=== PATIENT | male | born 1950 | race Caucasian/White ===

== ENCOUNTER 2016-12-31 12:31 | Emergency (ER) | payer MEDICARE, MEDICAID ==
[2016-12-31] MEDS ORDERED: Sodium Chloride 0.9% 1,000 ML IV ONE (12:53)
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
[2016-12-31 14:11] LABS: CHLORIDE,CL 103 mmol/L (101-111); SODIUM,NA 135 mmol/L (135-145)
[2016-12-31] MEDS ORDERED: cefTRIAXone 1 GM in Sodium Chloride 0.9% 50 ML IV ONE (15:06)
[2016-12-31] MEDS ORDERED: Azithromycin 500 MG in Sodium Chloride 0.9% 250 ML IV ONE (15:06)
[2016-12-31 16:34] VITALS: BP 84/58
--- NOTE | 2016-12-31 17:10 | CT ---
Clinical history: 66-year-old quadriplegic longterm patient with pronounced abdominal distention . (" Bloating") Perforation? Scan technique: Volume acquisition of data emergency unenhanced CT scan of the abdomen and pelvis ob tained with patient lying supine on the Siemens multi slice CT scanner [place], [place]. All data archived in the PACS system for storage, reformatting and study. Interpretation: 1. Asymmetric dense consolidation (infiltrate/atelectasis or collapse) left lung base posteriorly, w ith small bibasilar dependent pleural effusions. Borderline cardiomegaly. 2. Multilevel disc disease and chronic hypertrophic arthritic changes T8-S1. No fracture or spondylo listhesis. 3. Large volume peritoneal fat and scattered sigmoid diverticula. No signs of acute diverticulitis, mechanical large/small bowel obstruction, inflammatory "dirty" peritoneal fat, ascites or free air. 4. Gallbladder, unenhanced liver, stomach, spleen, pancreas and adrenal glands unremarkable. 5. Bilateral renal cortical scarring. No sign of nephrolithiasis or obstructive uropathy (indwelling catheter urinary bladder which appears to have uniformly thick wall). Normal appendix RLQ. 6. No pelvic or abdominal mass lesion and no retroperitoneal lymphadenopathy. 7. Calcification scattered course of normal caliber aortoiliac vessels. CONCLUSION: Abnormal process left lung base posteriorly (see above). Sigmoid diverticulosis. No curr ent signs of acute peritonitis or other intraperitoneal abnormality. Abnormal L-spine
== END 2016-12-31 16:58 | disposition home or self-care (01) ==
LOC: DL.ED 12:31
DX: J18.9 Pneumonia, unspecified organism (principal); F17.210 Nicotine dependence, cigarettes, uncomplicated; Z79.899 Other long term (current) drug therapy
CPT/HCPCS: 36415; 71010; 74176; 80053; 81001; 83605; 85025; 87040; 96361; 96365; 96367; 99285; J0456; J0696; J7030; J7050; 99284

== ENCOUNTER 2017-02-01 09:55 | Emergency (ER) | payer MEDICARE, MEDICAID ==
[2017-02-01] MEDS ORDERED: Sodium Chloride 0.9% 10 ML Syringe FLUSH PRN (10:30)
[2017-02-01 10:36] LABS: O2 DELIVERY DEVICE CPAP
--- NOTE | 2017-02-01 10:37 | EDM.PDOC ---
ED HPI GENERAL MEDICAL PROBLEM - General Chief Complaint: Respiratory Problem Stated Complaint: BY AMBULANCE Time Seen by Provider: 02/01/17 10:34 Source of Information: Reports: EMS, Care Home Records History Limitations: Reports: Altered Mental Status - History of Present Illness INITIAL COMMENTS - FREE TEXT/NARRATIVE: Pt brought in by EMS unresponsive on BiPap for low O2 saturation. Per brother, pt has been treated for Pneumonia the last week. Has a hx of urosepsis. Was found by staff this morning unresponsive. Onset: Today, Sudden Treatments INSURANCE ACCOUNT SPECIALIST: Reports: Breathing Treatments, IV/IO, Urinary Catheter in Place , Other (see below) Other Treatments INSURANCE ACCOUNT SPECIALIST: CPAP - Related Data Allergies Allergy/AdvReac Type Severity Reaction Status Date / Time No Known Allergies Allergy Verified 02/01/17 10:31 Home Meds: Home Meds Baclofen 20 mg PO QID 08/31/14 [History] Dantrolene [Dantrium] 50 tab PO BID 08/31/14 [History] Acetaminophen [Tylenol] 650 mg PO DAILY 04/12/16 [History] Bisacodyl 10 mg RECTAL ASDIRECTED PRN 04/12/16 [History] Clopidogrel [Plavix] 75 mg PO DAILY 04/12/16 [History] Polyethylene Glycol 3350 [MiraLAX] 17 gm PO DAILY PRN 04/12/16 [History] Simvastatin [Zocor] 40 mg PO DAILY 04/12/16 [History] Cyanocobalamin (Vitamin B12) [Vitamin B12] 1,000 mcg IM WEEKLY 05/20/16 [History ] Hydrocortisone [Hydrocortisone 2.5% Crm] 1 applic TOP DAILY 05/20/16 [History] Lisinopril 1 tab PO DAILY 05/20/16 [History] Magnesium Hydroxide [Milk of Magnesia] 10 ml PO ASDIRECTED PRN 05/20/16 [History ] Multivitamin [Multivitamins] 1 tab PO DAILY 05/20/16 [History] Zolpidem Tartrate [Ambien] 1 tab PO BEDTIME PRN 05/20/16 [History] OLANZapine [Zyprexa] 10 mg PO DAILY 12/31/16 [History] Acetaminophen [Tylenol] 650 mg PO Q4HR PRN 02/01/17 [History] Past Medical History HEENT History: Reports: None Cardiovascular History: Reports: Blood Clots/VTE/DVT, [place], Stents Respiratory History: Reports: PE Gastrointestinal History: Reports: None Genitourinary History: Reports: Neurogenic Bladder, Retention, Urinary, UTI, Recurrent Musculoskeletal History: Reports: Other (See Below) Other Musculoskeletal History: quadrapilegic Neurological History: Reports: Concussion, Other (See Below) Other Neuro History: quadriplegic Psychiatric History: Reports: None Endocrine/Metabolic History: Reports: None Hematologic History: Reports: None Immunologic History: Reports: None Oncologic (Cancer) History: Reports: None Dermatologic History: Reports: None - Past Surgical History Cardiovascular Surgical History: Reports: Coronary Artery Stent Social & Family History - Family History Family Medical History: Noncontributory - Tobacco Use Smoking Status *Q: Current Every Day Smoker Years of Tobacco use: 35 Packs/Tins Daily: 0.2 - Alcohol Use Days Per Week of Alcohol Use: 1 Number of Drinks Per Day: 1 Total Drinks Per Week: 1 - Recreational Drug Use Recreational Drug Use: No ED ROS GENERAL - Review of Systems Review Of Systems: Unable To Obtain ED EXAM, GENERAL - Physical Exam Exam: See Below Exam Limited By: Altered Mental Status General Appearance: Obtunded, Moderate Distress Eye Exam: Bilateral Eye: Other Respiratory/Chest: Respiratory Distress, Decreased Breath Sounds, Rhonchi Cardiovascular: Normal Peripheral Pulses, Tachycardia Neurological: Unresponsive Skin Exam: Warm, Dry, Intact Course - Vital Signs Last Recorded V/S: Last Vital Signs Temp 97.8 F 02/01/17 11:56 Pulse 112 H 02/01/17 11:56 Resp 17 02/01/17 11:56 BP 59/43 L 02/01/17 11:56 Pulse Ox 89 L 02/01/17 11:56 - Orders/Labs/Meds Orders: Active Orders 24 hr Category Date Time Status EKG Documentation Completion [RC] STAT Care 02/01/17 10:30 Active Peripheral IV Care [RC] . DIRECTED Care 02/01/17 10:33 Active RT BiPAP/CPAP [RC] ASDIRECTED Care 02/01/17 10:30 Active CULTURE BLOOD [BC] Stat Lab 02/01/17 10:30 Results CULTURE BLOOD [BC] Stat Lab 02/01/17 11:00 Results CULTURE URINE [RM] Stat Lab 02/01/17 11:28 Received Norepinephrine [Levophed] 4 mg Med 02/01/17 11:00 Active Dextrose 5% in Water 246 ml IV TITRATE Sodium Chloride 0.9% [Saline Flush] Med 02/01/17 10:30 Active 10 ml FLUSH ASDIRECTED PRN Blood Culture x2 Reflex Set [OM.PC] Stat Oth 02/01/17 10:32 Ordered Peripheral IV Insertion Adult [OM.PC] Urgent Oth 02/01/17 10:30 Ordered Medication Orders Norepinephrine Bitartrate 4 mg (/ Dextrose/Water) 250 mls @ 7.5 mls/hr IV TITRATE VIJAY; 2 MCG/MIN PRN Reason: Protocol Last Titration: 02/01/17 12:10 Dose: 4 mcg/min, 15 mls/hr Titration: 02/01/17 12:03 Dose: 3 mcg/min, 11.25 mls/hr Admin: 02/01/17 11:05 Dose: 2 mcg/min, 7.5 mls/hr Sodium Chloride (Saline Flush) 10 ml FLUSH ASDIRECTED PRN PRN Reason: Keep Vein Open Last Admin: 02/01/17 10:20 Dose: 10 ml Labs: Laboratory Tests 02/01/17 02/01/17 02/01/17 Range/Units 10:25 10:30 10:30 WBC 25.0 H (5.0-10.0) 10^3/uL RBC 3.74 L (4.6-6.2) 10^6/uL Hgb 12.2 L (14.0-18.0) g/dL Hct 39.0 L (40.0-54.0) % MCV 104.3 H (80-100) fL MCH 32.6 (27.0-34.0) pg MCHC 31.3 L (33.0-35.0) g/dL Plt Count 153 (150-450) 10^3/uL Neut % (Auto) 72.0 (42.2-75.2) % Lymph % (Auto) 14.4 L (20.5-50.1) % [place] % (Auto) 13.0 H (2-8) % Eos % (Auto) 0.4 L (1.0-3.0) % Baso % (Auto) 0.2 (0.0-1.0) % Add Manual Diff Yes Neutrophils % (Manual) 71 % Band Neutrophils % 5 % Lymphocytes % (Manual) 14 % Monocytes % (Manual) 9 % Eosinophils % (Manual) 1 % ABG pH 7.17 L* (7.35-7.45) ABG pCO2 71 H* (35-45) mmHg ABG pO2 68 L (70-100) mmHg ABG HCO3 24.5 (22-26) mmol/L ABG O2 Saturation 88 L (95-100) % ABG Base Excess -6 L ((-2)-(+3)) mmol/L Adryan Test p O2 Delivery Device Cpap Oxygen Flow Rate 7 Sodium 134 L (135-145) mmol/L Potassium 5.3 H (3.6-5.0) mmol/L Chloride 98 L (101-111) mmol/L Carbon Dioxide 24.0 (21.0-31.0) mmol/L Anion Gap 17.3 BUN 44 H (7-18) mg/dL Creatinine 1.7 H (0.6-1.3) mg/dL Est Cr Clr Drug Dosing TNP Estimated GFR (MDRD) 41 BUN/Creatinine Ratio 25.88 Glucose 161 H (74-105) mg/dL Lactic Acid (0.5-2.2) mmol/L Calcium 8.5 (8.4-10.2) mg/dl Total Bilirubin 0.8 (0.2-1.0) mg/dL AST 20 (10-42) IU/L ALT 16 (10-60) IU/L Alkaline Phosphatase 68 (42-121) IU/L Creatine Kinase (26-174) IU/L Creatine Kinase Index (0-2.4) % CK-MB (CK-2) (0.4-4.7) ng/mL Troponin I 0.04 H* (0.00-0.02) ng/ml B-Natriuretic Peptide 78 (0-100) pg/ml Total Protein 6.6 L (6.7-8.2) g/dl Albumin 3.1 L (3.2-5.5) g/dl Globulin 3.5 Albumin/Globulin Ratio 0.89 Urine Color (YELLOW) Urine Appearance (CLEAR) Urine pH (5.0-9.0) Ur Specific [place] (1.005-1.030) Urine Protein (NEGATIVE) Urine Glucose (UA) (NEGATIVE) Urine Ketones (NEGATIVE) Urine Occult Blood (NEGATIVE) Urine Nitrite (NEGATIVE) Urine Bilirubin (NEGATIVE) Urine Urobilinogen (0.2-1.0) mg/dL Ur Leukocyte Esterase (NEGATIVE) Urine RBC /HPF Urine WBC (0-5/HPF) /HPF Calcium Oxalate Crystal /HPF Amorphous Sediment (0/HPF) /HPF Urine Bacteria (0-FEW/HPF) /HPF 02/01/17 02/01/17 02/01/17 Range/Units 10:30 11:00 11:28 WBC (5.0-10.0) 10^3/uL RBC (4.6-6.2) 10^6/uL Hgb (14.0-18.0) g/dL Hct (40.0-54.0) % MCV (80-100) fL MCH (27.0-34.0) pg MCHC (33.0-35.0) g/dL Plt Count (150-450) 10^3/uL Neut % (Auto) (42.2-75.2) % Lymph % (Auto) (20.5-50.1) % [place] % (Auto) (2-8) % Eos % (Auto) (1.0-3.0) % Baso % (Auto) (0.0-1.0) % Add Manual Diff Neutrophils % (Manual) % Band Neutrophils % % Lymphocytes % (Manual) % Monocytes % (Manual) % Eosinophils % (Manual) % ABG pH (7.35-7.45) ABG pCO2 (35-45) mmHg ABG pO2 (70-100) mmHg ABG HCO3 (22-26) mmol/L ABG O2 Saturation (95-100) % ABG Base Excess ((-2)-(+3)) mmol/L Adryan Test O2 Delivery Device Oxygen Flow Rate Sodium (135-145) mmol/L Potassium (3.6-5.0) mmol/L Chloride (101-111) mmol/L Carbon Dioxide (21.0-31.0) mmol/L Anion Gap BUN (7-18) mg/dL Creatinine (0.6-1.3) mg/dL Est Cr Clr Drug Dosing Estimated GFR (MDRD) BUN/Creatinine Ratio Glucose (74-105) mg/dL Lactic Acid 1.5 (0.5-2.2) mmol/L Calcium (8.4-10.2) mg/dl Total Bilirubin (0.2-1.0) mg/dL AST (10-42) IU/L ALT (10-60) IU/L Alkaline Phosphatase (42-121) IU/L Creatine Kinase 364 H (26-174) IU/L Creatine Kinase Index 0.7 (0-2.4) % CK-MB (CK-2) 2.60 (0.4-4.7) ng/mL Troponin I (0.00-0.02) ng/ml B-Natriuretic Peptide (0-100) pg/ml Total Protein (6.7-8.2) g/dl Albumin (3.2-5.5) g/dl Globulin Albumin/Globulin Ratio Urine Color Yellow (YELLOW) Urine Appearance Cloudy (CLEAR) Urine pH 5.5 (5.0-9.0) Ur Specific [place] 1.015 (1.005-1.030) Urine Protein 30 H (NEGATIVE) Urine Glucose (UA) Negative (NEGATIVE) Urine Ketones Trace H (NEGATIVE) Urine Occult Blood Moderate H (NEGATIVE) Urine Nitrite Negative (NEGATIVE) Urine Bilirubin Negative (NEGATIVE) Urine Urobilinogen 0.2 (0.2-1.0) mg/dL Ur Leukocyte Esterase Moderate H (NEGATIVE) Urine RBC 10-20 H /HPF Urine WBC >100 H (0-5/HPF) /HPF Calcium Oxalate Crystal Few H /HPF Amorphous Sediment Rare (0/HPF) /HPF Urine Bacteria Few (0-FEW/HPF) /HPF Meds: Medications Generic Name Dose Route Start Last Admin Trade Name Freq PRN Reason Stop Dose Admin Norepinephrine Bitartrate 4 mg 250 mls @ 7.5 mls/hr 02/01/17 11:00 02/01/17 12:10 / Dextrose/Water IV 4 mcg/min TITRATE VIJAY 15 mls/hr Protocol Titration 2 MCG/MIN Sodium Chloride 10 ml 02/01/17 10:30 02/01/17 10:20 Saline Flush FLUSH 10 ml ASDIRECTED PRN Administration Keep Vein Open Discontinued Medications Generic Name Dose Route Start Last Admin Trade Name Freq PRN Reason Stop Dose Admin Levofloxacin/Dextrose 500 mg/ 100 mls @ 100 mls/hr 02/01/17 10:51 02/01/17 11 :35 Premix IV 02/01/17 11:50 100 mls/hr ONETIME ONE Administration Meropenem 1 gm/ Sodium 100 mls @ 200 mls/hr 02/01/17 12:30 02/01/17 12:43 Chloride IV 02/01/17 12:59 200 mls/hr ONETIME ONE Administration - Re-Assessments/Exams Free Text/Narrative Re-Assessment/Exam: 02/01/17 12:31 Spoke with [facility] about transfer due to sepsis with Dr. Aguilera acccepting pt. Was then called to state that after speaking with the education administrator, [facility] will only accept if code status is changed from DNR/DNI to a full code. Spoke with Pt 's Meet Gilliland (brother) who states that pt is to remain a DNR/DNI. Spoke with hospitalist donor center technician for this facility who will come to see patient to evaluate for admission. 02/01/17 13:04 [facility] called and accepted patient. Will transfer Departure - Departure Time of Disposition: 13:04 Disposition: DC/Tfer to [facility] 02 Condition: Fair, Critical Clinical Impression: UTI, Urinary tract infectious disease Pneumonia Qualifiers: Pneumonia type: due to unspecified organism Laterality: bilateral Lung location : lower lobe of lung Qualified Code(s): J18.9 - Pneumonia, unspecified organism - Discharge Information Forms: ED Department Discharge, Interfacility Transfer EMTALA - My Orders Last 24 Hours: My Active Orders 02/01/17 10:30 EKG Documentation Completion [RC] STAT RT BiPAP/CPAP [RC] ASDIRECTED CULTURE BLOOD [BC] Stat Sodium Chloride 0.9% [Saline Flush] 10 ml FLUSH ASDIRECTED PRN Peripheral IV Insertion Adult [OM.PC] Urgent 02/01/17 10:32 Blood Culture x2 Reflex Set [OM.PC] Stat 02/01/17 10:33 Peripheral IV Care [RC] . DIRECTED 02/01/17 11:00 CULTURE BLOOD [BC] Stat Norepinephrine [Levophed] 4 mg Dextrose 5% in Water 246 ml IV TITRATE 02/01/17 11:28 CULTURE URINE [RM] Stat - Assessment/Plan Last 24 Hours: My Active Orders 02/01/17 10:30 EKG Documentation Completion [RC] STAT RT BiPAP/CPAP [RC] ASDIRECTED CULTURE BLOOD [BC] Stat Sodium Chloride 0.9% [Saline Flush] 10 ml FLUSH ASDIRECTED PRN Peripheral IV Insertion Adult [OM.PC] Urgent 02/01/17 10:32 Blood Culture x2 Reflex Set [OM.PC] Stat 02/01/17 10:33 Peripheral IV Care [RC] . DIRECTED 02/01/17 11:00 CULTURE BLOOD [BC] Stat Norepinephrine [Levophed] 4 mg Dextrose 5% in Water 246 ml IV TITRATE 02/01/17 11:28 CULTURE URINE [RM] Stat
[2017-02-01 10:38] LABS: BASE EXCESS ARTERIAL -6 mmol/L ((-2)-(+3)); BICARBONATE,ARTERIAL 24.5 mmol/L (22-26); O2 SATURATION ARTERIAL 88 % (95-100); PO2 ARTERIAL 68 mmHg (70-100)
[2017-02-01 10:39] LABS: PCO2 ARTERIAL 71 mmHg (35-45)
[2017-02-01 10:40] LABS: O2 FLOW RATE 7
--- NOTE | 2017-02-01 10:49 | CR ---
Clinical history: 66-year-old male emergency department with "altered mental status". Interpretation: Poor inspiratory effort Upright AP portable chest film....abnormal, with patchy new atelectasis or infiltrate in the right base when compared to 31 Dec 2016 and 20 May 2016 exam. Chronic left lower lobe consolidation with underlying atelectasis/collapse, unchanged. Evidence lower cervical spinal fusion. Normal cardiac silhouette without cephalization of vascular flow or new signs of alveolar edema or d ependent pleural effusion. No lung mass or hilar lymphadenopathy. CONCLUSION: Patchy new right lower lobe pneumonic like consolidation. Clinical?
[2017-02-01] MEDS ORDERED: Levofloxacin/Dextrose 5%-Water 500 MG in Premix Bag 1 BAG IV ONE (10:51)
[2017-02-01 11:00] LABS: CHLORIDE,CL 98 mmol/L (101-111); SODIUM,NA 134 mmol/L (135-145)
[2017-02-01] MEDS ORDERED: Norepinephrine 4 MG in Dextrose 5% in Water 246 ML IV SCH ×2 (11:00)
[2017-02-01 11:58] VITALS: BP 59/43
[2017-02-01] MEDS ORDERED: Meropenem 1 GM in Sodium Chloride 0.9% 100 ML IV ONE (12:30)
--- NOTE | 2017-02-20 12:36 | EKG ---
02/01/2017 - PHILIP SANTAMARIA - Jon 12-lead EKG shows normal sinus rhythm with sinus tachycardia with heart rate of 121. No significant ST elevation or ST depression noted on this 12-lead EKG. Nonspecific ST-T wave changes noted on lead 3 and also on V2 and V3. [facility] /[id number]
== END 2017-02-01 13:15 ==
LOC: DL.ED 09:55
DX: J18.9 Pneumonia, unspecified organism (principal); N39.0 Urinary tract infection, site not specified; F17.210 Nicotine dependence, cigarettes, uncomplicated; Z79.899 Other long term (current) drug therapy; Z86.711 Personal history of pulmonary embolism; Z95.5 Presence of coronary angioplasty implant and graft
CPT/HCPCS: 36415; 36600; 71010; 80053; 81001; 82550; 82553; 82803; 83605; 83880; 84484; 85025; 87040; 87086; 93005; 93010; 94660; 96365; 96367; 96368; 99285; J1956; J2185; J7050; J7060; 87088; 87186

== ENCOUNTER 2017-03-04 11:13 | Emergency (ER) | payer MEDICARE, MEDICAID ==
--- NOTE | 2017-03-04 11:23 | EDM.PDOC ---
ED HPI GENERAL MEDICAL PROBLEM - General Stated Complaint: [id number] LOW BP SEIZURE SENT FROM DR MONDRAGON Time Seen by Provider: 03/04/17 11:20 Source of Information: Reports: Family, Provider History Limitations: Reports: Altered Mental Status - History of Present Illness INITIAL COMMENTS - FREE TEXT/NARRATIVE: This 66 yo male patient was sent to the ED from the [facility] (Dr. Mina) due to hypotension. According to the [facility] staff, the patient started having problems this morning at about 0900. The [facility] staff reports the patient has had 3-4 episodes of shaking (head only) and his "eyes rolling back" . The patient is paralyzed below the neck. The patient has been seen in the past for pneumonia and uro sepsis with his last hospitalization being 1 month ago. senior living notes report that the patient has puss in his urine and it is cloudy. Onset: Today Onset Date: 03/04/17 Onset Time: 09:00 Duration: Hour(s): Location: Reports: Generalized Quality: Reports: Dull Severity: Moderate Improves with: Reports: None Worsens with: Reports: None Associated Symptoms: Reports: No Other Symptoms - Related Data Allergies Allergy/AdvReac Type Severity Reaction Status Date / Time No Known Allergies Allergy Verified 03/04/17 11:29 Home Meds: Home Meds Baclofen 5 mg PO TID 08/31/14 [History] Dantrolene [Dantrium] 25 tab PO BID 08/31/14 [History] Acetaminophen [Tylenol] 650 mg PO DAILY 04/12/16 [History] Bisacodyl 10 mg RECTAL ASDIRECTED PRN 04/12/16 [History] Clopidogrel [Plavix] 75 mg PO DAILY 04/12/16 [History] Polyethylene Glycol 3350 [MiraLAX] 17 gm PO DAILY PRN 04/12/16 [History] Simvastatin [Zocor] 40 mg PO DAILY 04/12/16 [History] Cyanocobalamin (Vitamin B12) [Vitamin B12] 1,000 mcg IM ASDIRECTED 05/20/16 [ History] Hydrocortisone [Hydrocortisone 2.5% Crm] 1 applic TOP DAILY 05/20/16 [History] Lisinopril 1 tab PO DAILY 05/20/16 [History] Magnesium Hydroxide [Milk of Magnesia] 10 ml PO ASDIRECTED PRN 05/20/16 [History ] Multivitamin [Multivitamins] 1 tab PO DAILY 05/20/16 [History] Zolpidem Tartrate [Ambien] 1 tab PO BEDTIME PRN 05/20/16 [History] OLANZapine [Zyprexa] 5 mg PO DAILY 12/31/16 [History] Acetaminophen [Tylenol] 650 mg PO Q4HR PRN 02/01/17 [History] Ascorbic Acid [Vitamin C] 500 mg PO BID 03/04/17 [History] Sennosides/Docusate Sodium [Sennosides-Docusate Sodium] 2 tab PO BID 03/04/17 [ History] Past Medical History HEENT History: Reports: None Cardiovascular History: Reports: Blood Clots/VTE/DVT, [place], Stents Respiratory History: Reports: PE Gastrointestinal History: Reports: None Genitourinary History: Reports: Neurogenic Bladder, Retention, Urinary, UTI, Recurrent Musculoskeletal History: Reports: Other (See Below) Other Musculoskeletal History: quadrapilegic Neurological History: Reports: Concussion, Other (See Below) Other Neuro History: quadriplegic Psychiatric History: Reports: None Endocrine/Metabolic History: Reports: None Hematologic History: Reports: None Immunologic History: Reports: None Oncologic (Cancer) History: Reports: None Dermatologic History: Reports: None - Past Surgical History Cardiovascular Surgical History: Reports: Coronary Artery Stent Social & Family History - Family History Family Medical History: Noncontributory - Tobacco Use Smoking Status *Q: Current Every Day Smoker Years of Tobacco use: 35 Packs/Tins Daily: 0.2 - Alcohol Use Days Per Week of Alcohol Use: 1 Number of Drinks Per Day: 1 Total Drinks Per Week: 1 - Recreational Drug Use Recreational Drug Use: No ED ROS GENERAL - Review of Systems Review Of Systems: ROS reveals no pertinent complaints other than HPI. ED EXAM, GENERAL - Physical Exam Exam: See Below Exam Limited By: No Limitations General Appearance: Alert, WD/WN, No Apparent Distress Eye Exam: Bilateral Eye: EOMI, Normal Inspection, PERRL Ears: Normal External Exam, Normal Canal, Hearing Grossly Normal, Normal TMs Nose: Normal Inspection, Normal Mucosa, No Blood Throat/Mouth: Normal Inspection, Normal Lips, Normal Teeth, Normal Gums, Normal Oropharynx, Normal Voice, No Airway Compromise Head: Atraumatic, Normocephalic Neck: Normal Inspection, Supple, Non-Tender, Full Range of Motion Respiratory/Chest: No Respiratory Distress, Decreased Breath Sounds Cardiovascular: Normal Peripheral Pulses, Regular Rate, Rhythm, No Edema, No Gallop, No JVD, No Murmur, No Rub GI/Abdominal: Normal Bowel Sounds, Soft, Non-Tender, No Organomegaly, No Distention, No Abnormal Bruit, No Mass (Male) Exam: Deferred Rectal (Males) Exam: Deferred Extremities: Normal Inspection Neurological: Alert, Oriented Psychiatric: Normal Affect, Normal Mood Skin Exam: Warm, Dry, Intact, Normal Color, No Rash Lymphatic: No Adenopathy Course - Vital Signs Last Recorded V/S: Last Vital Signs Temp 35.9 C 03/04/17 11:20 Pulse 66 03/04/17 13:35 Resp 16 03/04/17 11:20 BP 67/45 L 03/04/17 13:35 Pulse Ox 100 03/04/17 13:35 - Orders/Labs/Meds Orders: Active Orders 24 hr Category Date Time Status EKG Documentation Completion [RC] URGENT Care 03/04/17 11:16 Active CULTURE BLOOD [BC] Stat Lab 03/04/17 11:30 Received CULTURE BLOOD [BC] Stat Lab 03/04/17 11:37 Results Piperacillin/Tazobactam [Zosyn] 3.375 gm Med 03/04/17 15:15 Ordered Sodium Chloride 0.9% [Normal Saline] 100 ml IV ONETIME Sodium Chloride 0.9% [Normal Saline] 1,000 ml Med 03/04/17 12:48 Active IV .BOLUS Blood Culture x2 Reflex Set [OM.PC] Stat Oth 03/04/17 11:16 Ordered Medication Orders Sodium Chloride (Normal Saline) 1,000 mls @ 125 mls/hr IV .BOLUS ONE Stop: 03/04/17 20:47 Last Admin: 03/04/17 12:54 Dose: 125 mls/hr Piperacillin Sod/Tazobactam (Sod 3.375 gm/ Sodium Chloride) 100 mls @ 200 mls/ hr IV ONETIME ONE Stop: 03/04/17 15:44 Labs: Laboratory Tests 03/04/17 03/04/17 03/04/17 Range/Units 11:30 11:30 11:30 WBC 12.8 H (5.0-10.0) 10^3/uL RBC 3.88 L (4.6-6.2) 10^6/uL Hgb 12.8 L (14.0-18.0) g/dL Hct 38.1 L (40.0-54.0) % MCV 98.2 (80-100) fL MCH 33.0 (27.0-34.0) pg MCHC 33.6 (33.0-35.0) g/dL Plt Count 211 (150-450) 10^3/uL Neut % (Auto) 72.0 (42.2-75.2) % Lymph % (Auto) 16.7 L (20.5-50.1) % [place] % (Auto) 8.8 H (2-8) % Eos % (Auto) 2.3 (1.0-3.0) % Baso % (Auto) 0.2 (0.0-1.0) % Add Manual Diff Yes Neutrophils % (Manual) 70 % Band Neutrophils % 2 % Lymphocytes % (Manual) 15 % Monocytes % (Manual) 10 % Eosinophils % (Manual) 2 % Myelocytes % 1 Sodium (135-145) mmol/L Potassium (3.6-5.0) mmol/L Chloride (101-111) mmol/L Carbon Dioxide (21.0-31.0) mmol/L Anion Gap BUN (7-18) mg/dL Creatinine (0.6-1.3) mg/dL Est Cr Clr Drug Dosing Estimated GFR (MDRD) BUN/Creatinine Ratio Glucose (74-105) mg/dL Lactic Acid 1.8 (0.5-2.2) mmol/L Calcium (8.4-10.2) mg/dl Magnesium 2.0 (1.8-2.5) mg/dL Total Bilirubin (0.2-1.0) mg/dL AST (10-42) IU/L ALT (10-60) IU/L Alkaline Phosphatase (42-121) IU/L Troponin I (0.00-0.02) ng/ml Total Protein (6.7-8.2) g/dl Albumin (3.2-5.5) g/dl Globulin Albumin/Globulin Ratio Urine Color (YELLOW) Urine Appearance (CLEAR) Urine pH (5.0-9.0) Ur Specific [place] (1.005-1.030) Urine Protein (NEGATIVE) Urine Glucose (UA) (NEGATIVE) Urine Ketones (NEGATIVE) Urine Occult Blood (NEGATIVE) Urine Nitrite (NEGATIVE) Urine Bilirubin (NEGATIVE) Urine Urobilinogen (0.2-1.0) mg/dL Ur Leukocyte Esterase (NEGATIVE) Urine RBC /HPF Urine WBC (0-5/HPF) /HPF Ur Epithelial Cells /HPF Amorphous Sediment (0/HPF) /HPF Urine Bacteria (0-FEW/HPF) /HPF Hyaline Casts /LPF Urine Mucus /LPF 03/04/17 03/04/17 Range/Units 11:30 14:13 WBC (5.0-10.0) 10^3/uL RBC (4.6-6.2) 10^6/uL Hgb (14.0-18.0) g/dL Hct (40.0-54.0) % MCV (80-100) fL MCH (27.0-34.0) pg MCHC (33.0-35.0) g/dL Plt Count (150-450) 10^3/uL Neut % (Auto) (42.2-75.2) % Lymph % (Auto) (20.5-50.1) % [place] % (Auto) (2-8) % Eos % (Auto) (1.0-3.0) % Baso % (Auto) (0.0-1.0) % Add Manual Diff Neutrophils % (Manual) % Band Neutrophils % % Lymphocytes % (Manual) % Monocytes % (Manual) % Eosinophils % (Manual) % Myelocytes % Sodium 133 L (135-145) mmol/L Potassium 4.8 (3.6-5.0) mmol/L Chloride 103 (101-111) mmol/L Carbon Dioxide 17.0 L (21.0-31.0) mmol/L Anion Gap 17.8 BUN 37 H (7-18) mg/dL Creatinine 1.3 (0.6-1.3) mg/dL Est Cr Clr Drug Dosing TNP Estimated GFR (MDRD) 56 BUN/Creatinine Ratio 28.46 Glucose 116 H (74-105) mg/dL Lactic Acid (0.5-2.2) mmol/L Calcium 9.0 (8.4-10.2) mg/dl Magnesium (1.8-2.5) mg/dL Total Bilirubin 0.5 (0.2-1.0) mg/dL AST 18 (10-42) IU/L ALT 16 (10-60) IU/L Alkaline Phosphatase 62 (42-121) IU/L Troponin I 0.10 H* (0.00-0.02) ng/ml Total Protein 6.6 L (6.7-8.2) g/dl Albumin 3.7 (3.2-5.5) g/dl Globulin 2.9 Albumin/Globulin Ratio 1.28 Urine Color Yellow (YELLOW) Urine Appearance Turbid (CLEAR) Urine pH 5.0 (5.0-9.0) Ur Specific [place] >= 1.030 (1.005-1.030) Urine Protein 100 H (NEGATIVE) Urine Glucose (UA) Negative (NEGATIVE) Urine Ketones Negative (NEGATIVE) Urine Occult Blood Moderate H (NEGATIVE) Urine Nitrite Negative (NEGATIVE) Urine Bilirubin Negative (NEGATIVE) Urine Urobilinogen 0.2 (0.2-1.0) mg/dL Ur Leukocyte Esterase Large H (NEGATIVE) Urine RBC 50-75 H /HPF Urine WBC >100 H (0-5/HPF) /HPF Ur Epithelial Cells Moderate H /HPF Amorphous Sediment Few (0/HPF) /HPF Urine Bacteria Few (0-FEW/HPF) /HPF Hyaline Casts Few H /LPF Urine Mucus Few H /LPF Meds: Medications Generic Name Dose Route Start Last Admin Trade Name Freq PRN Reason Stop Dose Admin Sodium Chloride 1,000 mls @ 125 mls/hr 03/04/17 12:48 03/04/17 12:54 Normal Saline IV 03/04/17 20:47 125 mls/hr .BOLUS ONE Administration Piperacillin Sod/Tazobactam 100 mls @ 200 mls/hr 03/04/17 15:15 Sod 3.375 gm/ Sodium Chloride IV 03/04/17 15:44 ONETIME ONE Discontinued Medications Generic Name Dose Route Start Last Admin Trade Name Freq PRN Reason Stop Dose Admin Aspirin 324 mg 03/04/17 15:15 Aspirin PO 03/04/17 15:16 ONETIME ONE - Re-Assessments/Exams Free Text/Narrative Re-Assessment/Exam: 03/04/17 15:29 Discussed history, exam, lab, EKG, CT and x-ray results with Dr. Gage. Dr. Gage advised to transfer the patient to due to elevated Trop. Departure - Departure Time of Disposition: 15:30 Disposition: DC/Tfer to Acute Hospital 02 Condition: Fair Clinical Impression: NSTEMI (non-ST elevated myocardial infarction) UTI (urinary tract infection) Qualifiers: Urinary tract infection type: catheter-associated UTI Indwelling urinary catheter type: indwelling urethral catheter Encounter type: initial encounter Qualified Code(s): T83.511A - Infection and inflammatory reaction due to indwelling urethral catheter, initial encounter - Discharge Information Forms: Interfacility Transfer EMTALA Care Plan Goals: Discussed the examination, history, lab, EKG, CT and x-ray results with Dr. Camp (Hospitalist with [facility] in [place]). Dr. Camp accepted the patient for continued evaluation and management. The patient will be transported by [facility]. - My Orders Last 24 Hours: My Active Orders 03/04/17 11:16 EKG Documentation Completion [RC] URGENT Blood Culture x2 Reflex Set [OM.PC] Stat 03/04/17 11:30 CULTURE BLOOD [BC] Stat 03/04/17 11:37 CULTURE BLOOD [BC] Stat 03/04/17 12:48 Sodium Chloride 0.9% [Normal Saline] 1,000 ml IV .BOLUS 03/04/17 15:15 Piperacillin/Tazobactam [Zosyn] 3.375 gm Sodium Chloride 0.9% [Normal Saline] 100 ml IV ONETIME - Assessment/Plan Last 24 Hours: My Active Orders 03/04/17 11:16 EKG Documentation Completion [RC] URGENT Blood Culture x2 Reflex Set [OM.PC] Stat 03/04/17 11:30 CULTURE BLOOD [BC] Stat 03/04/17 11:37 CULTURE BLOOD [BC] Stat 03/04/17 12:48 Sodium Chloride 0.9% [Normal Saline] 1,000 ml IV .BOLUS 03/04/17 15:15 Piperacillin/Tazobactam [Zosyn] 3.375 gm Sodium Chloride 0.9% [Normal Saline] 100 ml IV ONETIME
[2017-03-04 12:01] LABS: CHLORIDE,CL 103 mmol/L (101-111); SODIUM,NA 133 mmol/L (135-145)
[2017-03-04] MEDS ORDERED: Sodium Chloride 0.9% 1,000 ML IV ONE (12:48)
--- NOTE | 2017-03-04 13:01 | CR ---
Clinical history: 66-year-old male hypertension and seizure. Interpretation: Asymmetric elevation left hemidiaphragm and dense opacification lower left hemithora x suggesting atelectasis and/or underlying effusion. Normal cardiac silhouette without cephalization of flow with new signs of alveolar edema or dependen t effusion on the right i.e. unchanged since 01 February 2017. No new lung mass hilar lymphadenopathy or focal lobar pneumonia. CONCLUSION: Chronic elevation left hemidiaphragm and left lower lobe atelectasis (effusion?). No other acute new cardiopulmonary abnormality since 01 February exam.
--- NOTE | 2017-03-04 13:04 | CT ---
Clinical history: 66-year-old hypotensive male with possible seizure. TECHNIQUE:. Volume acquisition of data emergency unenhanced CT scan of the head and brain obtained w ith patient lying supine on the Siemens multi slice scanner [place], [place]. All data archived in the PACS system for storage, reformatting and study (bone/brain window s). Interpretation: No acute new intracranial abnormality when compared directly to CT exam head 15 Apr. Uniformly thick bony calvarium without sign of skull fracture or underlying brain contusion or epidu ral/subdural hematoma. Symmetric age-appropriate atrophy and underlying mirror-image normal ventricular system. Physiologic choroid plexus calcifications. No new signs of supratentorial or posterior fossa mass lesion, hydrocephalus or acute intracerebral/ intraventricular/subarachnoid bleed.
[2017-03-04] MEDS ORDERED: Aspirin 81 MG Tab.Chew PO ONE (15:15)
[2017-03-04] MEDS ORDERED: Piperacillin/Tazobactam 3.375 GM in Sodium Chloride 0.9% 100 ML IV ONE (15:15)
[2017-03-04 15:56] VITALS: BP 73/45
--- NOTE | 2017-03-05 15:46 | EKG ---
03/04/2017 - PHILIP SANTAMARIA - TIME: 11:26 a.m. EKG shows normal sinus rhythm. There is minimal ST-segment elevation in the inferior leads. There is nonspecific T-wave abnormality in the anterior leads. No reciprocal ST-segment depression. [facility] /[id number]
== END 2017-03-04 16:28 ==
LOC: DL.ED 11:13
DX: I21.4 Non-ST elevation (NSTEMI) myocardial infarction (principal); T83.511A Infection and inflammatory reaction due to indwelling urethral catheter, initial encounter; Z79.899 Other long term (current) drug therapy; Z95.5 Presence of coronary angioplasty implant and graft; F17.210 Nicotine dependence, cigarettes, uncomplicated; R41.82 Altered mental status, unspecified
CPT/HCPCS: 36415; 70450; 71010; 80053; 81001; 83605; 83735; 84484; 85025; 87040; 93005; 93010; 96361; 96365; 99285; A9270; J2543; J7030; J7050

== ENCOUNTER 2017-03-12 15:26 | Emergency (ER) | payer MEDICARE, MEDICAID ==
[2017-03-12 16:29] LABS: CHLORIDE,CL 101 mmol/L (101-111); SODIUM,NA 136 mmol/L (135-145)
--- NOTE | 2017-03-12 16:35 | CR ---
Clinical history: 66-year-old male with clinical "sepsis". Upright PA chest confirms asymmetric new elevation left hemidiaphragm with left lower lobe atelectas is (underlying infiltrate? small effusion?) since 01 February 2017 exam, unchanged when compared directly to more recent film 2016. Normal cardiac silhouette without alveolar edema or dependent effusion (evidence lower cervical spin al fusion). No new lung mass, hilar lymphadenopathy, other focal lobar consolidation (infiltrate/atelectasis) or pneumothorax.
[2017-03-12] MEDS ORDERED: Piperacillin/Tazobactam 3.375 GM in Sodium Chloride 0.9% 100 ML IV ONE (17:21)
--- NOTE | 2017-03-12 17:30 | EDM.PDOC ---
Scribed by Jessica Lozano 03/12/17 [id number] for Harish Mccurdy PA ED HPI GENERAL MEDICAL PROBLEM - General Chief Complaint: Possible Sepsis Stated Complaint: FROM [facility] Time Seen by Provider: 03/12/17 16:30 Source of Information: Reports: Patient, [facility] Records, RN Notes Reviewed History Limitations: Reports: No Limitations - History of Present Illness INITIAL COMMENTS - FREE TEXT/NARRATIVE: Patient has decreased blood pressure. He had a little diarrhea last night. No falls. Patient was answering questions appropriately. Pain in buttocks is chronic. - Related Data Allergies Allergy/AdvReac Type Severity Reaction Status Date / Time No Known Allergies Allergy Verified 03/12/17 17:20 Home Meds: Home Meds Baclofen 5 mg PO TID 08/31/14 [History] Dantrolene [Dantrium] 25 tab PO BID 08/31/14 [History] Acetaminophen [Tylenol] 650 mg PO DAILY 04/12/16 [History] Bisacodyl 10 mg RECTAL ASDIRECTED PRN 04/12/16 [History] Clopidogrel [Plavix] 75 mg PO DAILY 04/12/16 [History] Polyethylene Glycol 3350 [MiraLAX] 17 gm PO DAILY PRN 04/12/16 [History] Simvastatin [Zocor] 40 mg PO DAILY 04/12/16 [History] Cyanocobalamin (Vitamin B12) [Vitamin B12] 1,000 mcg IM ASDIRECTED 05/20/16 [ History] Hydrocortisone [Hydrocortisone 2.5% Crm] 1 applic TOP DAILY 05/20/16 [History] Lisinopril 1 tab PO DAILY 05/20/16 [History] Magnesium Hydroxide [Milk of Magnesia] 10 ml PO ASDIRECTED PRN 05/20/16 [History ] Multivitamin [Multivitamins] 1 tab PO DAILY 05/20/16 [History] Zolpidem Tartrate [Ambien] 1 tab PO BEDTIME PRN 05/20/16 [History] OLANZapine [Zyprexa] 5 mg PO DAILY 12/31/16 [History] Acetaminophen [Tylenol] 650 mg PO Q4HR PRN 02/01/17 [History] Ascorbic Acid [Vitamin C] 500 mg PO BID 03/04/17 [History] Sennosides/Docusate Sodium [Sennosides-Docusate Sodium] 2 tab PO BID 03/04/17 [ History] Past Medical History HEENT History: Reports: None Cardiovascular History: Reports: Blood Clots/VTE/DVT, [place], Stents Respiratory History: Reports: PE Gastrointestinal History: Reports: None Genitourinary History: Reports: Neurogenic Bladder, Retention, Urinary, UTI, Recurrent Musculoskeletal History: Reports: Other (See Below) Other Musculoskeletal History: quadrapilegic Neurological History: Reports: Concussion, Other (See Below) Other Neuro History: quadriplegic Psychiatric History: Reports: None Endocrine/Metabolic History: Reports: None Hematologic History: Reports: None Immunologic History: Reports: None Oncologic (Cancer) History: Reports: None Dermatologic History: Reports: None - Infectious Disease History Infectious Disease History: Reports: Chicken Pox, Mumps - Past Surgical History Cardiovascular Surgical History: Reports: Coronary Artery Stent Social & Family History - Family History Family Medical History: Noncontributory - Tobacco Use Smoking Status *Q: Current Every Day Smoker Years of Tobacco use: 35 Packs/Tins Daily: 0.2 Second Hand Smoke Exposure: No - Caffeine Use Caffeine Use: Reports: Soda - Alcohol Use Days Per Week of Alcohol Use: 1 Number of Drinks Per Day: 1 Total Drinks Per Week: 1 - Recreational Drug Use Recreational Drug Use: No ED ROS GENERAL - Review of Systems Review Of Systems: ROS reveals no pertinent complaints other than HPI. ED EXAM, SEPSIS - Physical Exam Exam: See Below Exam Limited By: No Limitations General Appearance: Alert, WD/WN, No Apparent Distress Eye Exam: Bilateral Eye: Normal Inspection Ears: Normal External Exam, Normal Canal, Hearing Grossly Normal, Normal TMs Nose: Normal Inspection, Normal Mucosa, No Blood Throat/Mouth: Normal Inspection, Normal Lips, Normal Teeth, Normal Gums, Normal Oropharynx, Normal Voice, No Airway Compromise Head: Atraumatic, Normocephalic Neck: Normal Inspection, Supple, Non-Tender, Full Range of Motion Respiratory/Chest: Decreased Breath Sounds (slightly) Cardiovascular: Normal Peripheral Pulses, Regular Rate, Rhythm, No Edema, No Gallop, No JVD, No Murmur, No Rub GI/Abdominal Exam: Normal Bowel Sounds, Soft, Non-Tender, No Organomegaly, No Distention, No Abnormal Bruit, No Mass, Pelvis Stable (Male) Exam: Deferred Rectal (Males) Exam: Deferred Back: Normal Inspection, Full Range of Motion, NT Extremities: Normal Inspection, Normal Range of Motion, Non-Tender, No Pedal Edema, Normal Capillary Refill Neurological: Alert, Oriented, CN II-XII Intact, Normal Cognition, Normal Gait, Normal Reflexes, No Motor/Sensory Deficits Psychiatric: Normal Affect, Normal Mood Skin: Warm, Dry, Intact, Normal Color, No Rash Lymphatic: Bilateral: No Adenopathy Course - Vital Signs Last Recorded V/S: Last Vital Signs Temp 36.9 C 03/12/17 15:33 Pulse 87 03/12/17 15:33 Resp 16 03/12/17 15:33 BP 97/64 03/12/17 15:33 Pulse Ox 99 03/12/17 15:33 - Orders/Labs/Meds Orders: Active Orders 24 hr Category Date Time Status CULTURE BLOOD [BC] Stat Lab 03/12/17 15:56 Received CULTURE BLOOD [BC] Stat Lab 03/12/17 16:00 Received Piperacillin/Tazobactam [Zosyn] 3.375 gm Med 03/12/17 17:21 Ordered Sodium Chloride 0.9% [Normal Saline] 100 ml IV ONETIME Blood Culture x2 Reflex Set [OM.PC] Stat Oth 03/12/17 15:41 Ordered Medication Orders Piperacillin Sod/Tazobactam (Sod 3.375 gm/ Sodium Chloride) 100 mls @ 200 mls/ hr IV ONETIME ONE Stop: 03/12/17 17:50 Labs: Laboratory Tests 03/12/17 03/12/17 03/12/17 Range/Units 15:56 15:56 15:56 WBC 14.4 H (5.0-10.0) 10^3/uL RBC 3.76 L (4.6-6.2) 10^6/uL Hgb 12.0 L (14.0-18.0) g/dL Hct 37.5 L (40.0-54.0) % MCV 99.7 (80-100) fL MCH 31.9 (27.0-34.0) pg MCHC 32.0 L (33.0-35.0) g/dL Plt Count 240 (150-450) 10^3/uL Neut % (Auto) 68.1 (42.2-75.2) % Lymph % (Auto) 17.8 L (20.5-50.1) % [place] % (Auto) 11.5 H (2-8) % Eos % (Auto) 2.4 (1.0-3.0) % Baso % (Auto) 0.2 (0.0-1.0) % Add Manual Diff Yes Neutrophils % (Manual) 66 % Band Neutrophils % 2 % Lymphocytes % (Manual) 22 % Monocytes % (Manual) 8 % Eosinophils % (Manual) 2 % Sodium 136 (135-145) mmol/L Potassium 3.7 (3.6-5.0) mmol/L Chloride 101 (101-111) mmol/L Carbon Dioxide 23.0 (21.0-31.0) mmol/L Anion Gap 15.7 BUN 14 (7-18) mg/dL Creatinine 0.7 (0.6-1.3) mg/dL Est Cr Clr Drug Dosing TNP Estimated GFR (MDRD) > 60 BUN/Creatinine Ratio 20.00 Glucose 100 (74-105) mg/dL Lactic Acid 1.7 (0.5-2.2) mmol/L Calcium 8.7 (8.4-10.2) mg/dl Total Bilirubin 0.4 (0.2-1.0) mg/dL AST 18 (10-42) IU/L ALT 15 (10-60) IU/L Alkaline Phosphatase 44 (42-121) IU/L B-Natriuretic Peptide 88 (0-100) pg/ml Total Protein 6.3 L (6.7-8.2) g/dl Albumin 3.5 (3.2-5.5) g/dl Globulin 2.8 Albumin/Globulin Ratio 1.25 Urine Color (YELLOW) Urine Appearance (CLEAR) Urine pH (5.0-9.0) Ur Specific [place] (1.005-1.030) Urine Protein (NEGATIVE) Urine Glucose (UA) (NEGATIVE) Urine Ketones (NEGATIVE) Urine Occult Blood (NEGATIVE) Urine Nitrite (NEGATIVE) Urine Bilirubin (NEGATIVE) Urine Urobilinogen (0.2-1.0) mg/dL Ur Leukocyte Esterase (NEGATIVE) Urine RBC /HPF Urine WBC (0-5/HPF) /HPF Ur Epithelial Cells /HPF Amorphous Sediment (0/HPF) /HPF Urine Bacteria (0-FEW/HPF) /HPF Urine Mucus /LPF 03/12/17 Range/Units 16:50 WBC (5.0-10.0) 10^3/uL RBC (4.6-6.2) 10^6/uL Hgb (14.0-18.0) g/dL Hct (40.0-54.0) % MCV (80-100) fL MCH (27.0-34.0) pg MCHC (33.0-35.0) g/dL Plt Count (150-450) 10^3/uL Neut % (Auto) (42.2-75.2) % Lymph % (Auto) (20.5-50.1) % [place] % (Auto) (2-8) % Eos % (Auto) (1.0-3.0) % Baso % (Auto) (0.0-1.0) % Add Manual Diff Neutrophils % (Manual) % Band Neutrophils % % Lymphocytes % (Manual) % Monocytes % (Manual) % Eosinophils % (Manual) % Sodium (135-145) mmol/L Potassium (3.6-5.0) mmol/L Chloride (101-111) mmol/L Carbon Dioxide (21.0-31.0) mmol/L Anion Gap BUN (7-18) mg/dL Creatinine (0.6-1.3) mg/dL Est Cr Clr Drug Dosing Estimated GFR (MDRD) BUN/Creatinine Ratio Glucose (74-105) mg/dL Lactic Acid (0.5-2.2) mmol/L Calcium (8.4-10.2) mg/dl Total Bilirubin (0.2-1.0) mg/dL AST (10-42) IU/L ALT (10-60) IU/L Alkaline Phosphatase (42-121) IU/L B-Natriuretic Peptide (0-100) pg/ml Total Protein (6.7-8.2) g/dl Albumin (3.2-5.5) g/dl Globulin Albumin/Globulin Ratio Urine Color Dark yellow (YELLOW) Urine Appearance Turbid (CLEAR) Urine pH 5.0 (5.0-9.0) Ur Specific [place] 1.025 (1.005-1.030) Urine Protein Negative (NEGATIVE) Urine Glucose (UA) Negative (NEGATIVE) Urine Ketones Negative (NEGATIVE) Urine Occult Blood Negative (NEGATIVE) Urine Nitrite Negative (NEGATIVE) Urine Bilirubin Negative (NEGATIVE) Urine Urobilinogen 0.2 (0.2-1.0) mg/dL Ur Leukocyte Esterase Trace H (NEGATIVE) Urine RBC 0-5 /HPF Urine WBC 10-20 H (0-5/HPF) /HPF Ur Epithelial Cells Few /HPF Amorphous Sediment Many (0/HPF) /HPF Urine Bacteria Rare (0-FEW/HPF) /HPF Urine Mucus Rare /LPF Meds: Medications Generic Name Dose Route Start Last Admin Trade Name Freq PRN Reason Stop Dose Admin Piperacillin Sod/Tazobactam 100 mls @ 200 mls/hr 03/12/17 17:21 Sod 3.375 gm/ Sodium Chloride IV 03/12/17 17:50 ONETIME ONE Departure - Departure Time of Disposition: 17:26 Disposition: Home, Self-Care 01 Condition: Fair Clinical Impression: UTI, Urinary tract infectious disease - Discharge Information Instructions: Urinary Tract Infection, Adult, [id number] Forms: ED Department Discharge Care Plan Goals: The patient's family and Dr. Mina regarding the examination and lab results during the visit. The patient was given an IV dose of Zosyn while in the ED. A script was written for the patient to receive IV Zosyn (3.375 grams) daily 4 times per day for 7 days. If the patient has any additional symptoms or concerns , the patient should follow-up with his primary care facility or return to the emergency department. - My Orders Last 24 Hours: My Active Orders 03/12/17 15:41 Blood Culture x2 Reflex Set [OM.PC] Stat 03/12/17 15:56 CULTURE BLOOD [BC] Stat 03/12/17 16:00 CULTURE BLOOD [BC] Stat 03/12/17 17:21 Piperacillin/Tazobactam [Zosyn] 3.375 gm Sodium Chloride 0.9% [Normal Saline] 100 ml IV ONETIME - Assessment/Plan Last 24 Hours: My Active Orders 03/12/17 15:41 Blood Culture x2 Reflex Set [OM.PC] Stat 03/12/17 15:56 CULTURE BLOOD [BC] Stat 03/12/17 16:00 CULTURE BLOOD [BC] Stat 03/12/17 17:21 Piperacillin/Tazobactam [Zosyn] 3.375 gm Sodium Chloride 0.9% [Normal Saline] 100 ml IV ONETIME I have read and agree with the documentation that has been completed regarding this visit. By signing this record, I attest that the documentation was completed in my physical presence and is an accurate record of the encounter.
[2017-03-12] MEDS ORDERED: cefTRIAXone 1 GM, Lidocaine 1% 2.1 ML IM ONE ×2 (18:41)
[2017-03-12 19:20] VITALS: BP 120/105
== END 2017-03-12 19:28 | disposition home or self-care (01) ==
LOC: DL.ED 15:26
DX: N39.0 Urinary tract infection, site not specified (principal); I95.9 Hypotension, unspecified; F17.200 Nicotine dependence, unspecified, uncomplicated; Z79.899 Other long term (current) drug therapy; Z86.718 Personal history of other venous thrombosis and embolism; Z79.01 Long term (current) use of anticoagulants
CPT/HCPCS: 36415; 71010; 80053; 81001; 83605; 83880; 85025; 87040; 96372; 99285; J0696

== ENCOUNTER 2017-03-13 04:21 | Emergency (ER) | payer MEDICARE, MEDICAID ==
--- NOTE | 2017-03-13 04:42 | EDM.PDOC ---
ED HPI GENERAL MEDICAL PROBLEM - General Chief Complaint: General Stated Complaint: DECREASED CONSIOUSNESS, LOW BP-FROM [facility] Time Seen by Provider: 03/13/17 04:41 Source of Information: Reports: Shelter Records History Limitations: Reports: No Limitations - History of Present Illness INITIAL COMMENTS - FREE TEXT/NARRATIVE: pt states feels fine. - Related Data Allergies Allergy/AdvReac Type Severity Reaction Status Date / Time No Known Allergies Allergy Verified 03/13/17 04:36 Home Meds: Home Meds Baclofen 5 mg PO TID 08/31/14 [History] Dantrolene [Dantrium] 25 tab PO BID 08/31/14 [History] Acetaminophen [Tylenol] 650 mg PO DAILY 04/12/16 [History] Bisacodyl 10 mg RECTAL ASDIRECTED PRN 04/12/16 [History] Clopidogrel [Plavix] 75 mg PO DAILY 04/12/16 [History] Polyethylene Glycol 3350 [MiraLAX] 17 gm PO DAILY PRN 04/12/16 [History] Simvastatin [Zocor] 40 mg PO DAILY 04/12/16 [History] Cyanocobalamin (Vitamin B12) [Vitamin B12] 1,000 mcg IM ASDIRECTED 05/20/16 [ History] Hydrocortisone [Hydrocortisone 2.5% Crm] 1 applic TOP DAILY 05/20/16 [History] Lisinopril 1 tab PO DAILY 05/20/16 [History] Magnesium Hydroxide [Milk of Magnesia] 10 ml PO ASDIRECTED PRN 05/20/16 [History ] Multivitamin [Multivitamins] 1 tab PO DAILY 05/20/16 [History] Zolpidem Tartrate [Ambien] 1 tab PO BEDTIME PRN 05/20/16 [History] OLANZapine [Zyprexa] 5 mg PO DAILY 12/31/16 [History] Acetaminophen [Tylenol] 650 mg PO Q4HR PRN 02/01/17 [History] Ascorbic Acid [Vitamin C] 500 mg PO BID 03/04/17 [History] Sennosides/Docusate Sodium [Sennosides-Docusate Sodium] 2 tab PO BID 03/04/17 [ History] Ciprofloxacin HCl [Cipro] 500 mg PO Q12H 03/12/17 [History] Past Medical History HEENT History: Reports: None Cardiovascular History: Reports: Blood Clots/VTE/DVT, [place], Stents Respiratory History: Reports: PE Gastrointestinal History: Reports: None Genitourinary History: Reports: Neurogenic Bladder, Retention, Urinary, UTI, Recurrent Musculoskeletal History: Reports: Other (See Below) Other Musculoskeletal History: quadrapilegic Neurological History: Reports: Concussion, Other (See Below) Other Neuro History: quadriplegic Psychiatric History: Reports: None Endocrine/Metabolic History: Reports: None Hematologic History: Reports: None Immunologic History: Reports: None Oncologic (Cancer) History: Reports: None Dermatologic History: Reports: None - Infectious Disease History Infectious Disease History: Reports: Chicken Pox, Mumps - Past Surgical History Cardiovascular Surgical History: Reports: Coronary Artery Stent Social & Family History - Family History Family Medical History: Noncontributory - Tobacco Use Smoking Status *Q: Never Smoker Years of Tobacco use: 35 Packs/Tins Daily: 0.2 Used Tobacco, but Quit: Yes Month Tobacco Last Used: unsure Second Hand Smoke Exposure: No - Caffeine Use Caffeine Use: Reports: Soda - Alcohol Use Days Per Week of Alcohol Use: 1 Number of Drinks Per Day: 1 Total Drinks Per Week: 1 - Recreational Drug Use Recreational Drug Use: No ED ROS GENERAL - Review of Systems Review Of Systems: ROS reveals no pertinent complaints other than HPI. ED EXAM, GENERAL - Physical Exam Exam: See Below Exam Limited By: No Limitations General Appearance: Alert, WD/WN, No Apparent Distress Eye Exam: Bilateral Eye: PERRL (pupils ER @ 4mm) Ears: Hearing Grossly Normal Throat/Mouth: Normal Voice, No Airway Compromise Head: Atraumatic Neck: Non-Tender, Full Range of Motion Respiratory/Chest: No Respiratory Distress, Lungs Clear, Normal Breath Sounds, No Accessory Muscle Use Cardiovascular: Regular Rate, Rhythm GI/Abdominal: Soft, Non-Tender Neurological: Alert, Oriented, Normal Cognition, Other (quadraplegic) Psychiatric: Flat Affect Skin Exam: Warm, Dry, Normal Color Lymphatic: No Adenopathy Course - Vital Signs Last Recorded V/S: Last Vital Signs Temp 35.7 C 03/13/17 05:58 Pulse 89 03/13/17 05:58 Resp 19 03/13/17 05:58 BP 101/59 L 03/13/17 05:58 Pulse Ox 98 03/13/17 05:58 - Orders/Labs/Meds Orders: Active Orders 24 hr Category Date Time Status Sodium Chloride 0.9% [Normal Saline] 1,000 ml Med 03/13/17 05:00 Active IV ASDIRECTED Medication Orders Sodium Chloride (Normal Saline) 1,000 mls @ 150 mls/hr IV ASDIRECTED VIJAY Last Admin: 03/13/17 04:58 Dose: 150 mls/hr Labs: Laboratory Tests 03/13/17 03/13/17 Range/Units 04:40 04:40 WBC 14.4 H (5.0-10.0) 10^3/uL RBC 3.62 L (4.6-6.2) 10^6/uL Hgb 11.6 L (14.0-18.0) g/dL Hct 36.4 L (40.0-54.0) % MCV 100.6 H (80-100) fL MCH 32.0 (27.0-34.0) pg MCHC 31.9 L (33.0-35.0) g/dL Plt Count 200 (150-450) 10^3/uL Neut % (Auto) 64.9 (42.2-75.2) % Lymph % (Auto) 20.2 L (20.5-50.1) % [place] % (Auto) 11.8 H (2-8) % Eos % (Auto) 2.9 (1.0-3.0) % Baso % (Auto) 0.2 (0.0-1.0) % Add Manual Diff Yes Neutrophils % (Manual) 54 % Band Neutrophils % 14 % Lymphocytes % (Manual) 20 % Atypical Lymphs % 0 % Monocytes % (Manual) 10 % Eosinophils % (Manual) 2 % Basophils % (Manual) 0 Sodium 133 L (135-145) mmol/L Potassium 3.5 L (3.6-5.0) mmol/L Chloride 98 L (101-111) mmol/L Carbon Dioxide 25.0 (21.0-31.0) mmol/L Anion Gap 13.5 BUN 18 (7-18) mg/dL Creatinine 0.8 (0.6-1.3) mg/dL Est Cr Clr Drug Dosing 84.61 mL/min Estimated GFR (MDRD) > 60 BUN/Creatinine Ratio 22.50 Glucose 101 (74-105) mg/dL Calcium 8.4 (8.4-10.2) mg/dl Total Bilirubin 0.5 (0.2-1.0) mg/dL AST 17 (10-42) IU/L ALT 15 (10-60) IU/L Alkaline Phosphatase 47 (42-121) IU/L Total Protein 5.6 L (6.7-8.2) g/dl Albumin 3.3 (3.2-5.5) g/dl Globulin 2.3 Albumin/Globulin Ratio 1.43 Meds: Medications Generic Name Dose Route Start Last Admin Trade Name Freq PRN Reason Stop Dose Admin Sodium Chloride 1,000 mls @ 150 mls/hr 03/13/17 05:00 03/13/17 04:58 Normal Saline IV 150 mls/hr ASDIRECTED VIJAY Administration Discontinued Medications Generic Name Dose Route Start Last Admin Trade Name Freq PRN Reason Stop Dose Admin Sodium Chloride 1,000 mls @ 999 mls/hr 03/13/17 04:51 03/13/17 05:03 Normal Saline IV 03/13/17 05:51 Not Given .BOLUS ONE - Re-Assessments/Exams Free Text/Narrative Re-Assessment/Exam: 03/13/17 06:00 re-exam; sleeping arousable, no c/o Departure - Departure Time of Disposition: 06:00 Disposition: Home, Self-Care 01 Condition: Good Clinical Impression: UTI, Urinary tract infectious disease - Discharge Information Forms: ED Department Discharge Additional Instructions: 1) continue home meds 2) recheck as needed - My Orders Last 24 Hours: My Active Orders 03/13/17 05:00 Sodium Chloride 0.9% [Normal Saline] 1,000 ml IV ASDIRECTED - Assessment/Plan Last 24 Hours: My Active Orders 03/13/17 05:00 Sodium Chloride 0.9% [Normal Saline] 1,000 ml IV ASDIRECTED
[2017-03-13] MEDS ORDERED: Sodium Chloride 0.9% 1,000 ML IV ONE (04:51)
[2017-03-13] MEDS ORDERED: Sodium Chloride 0.9% 1,000 ML IV SCH (05:00)
[2017-03-13 05:12] LABS: CHLORIDE,CL 98 mmol/L (101-111); SODIUM,NA 133 mmol/L (135-145)
[2017-03-13 05:59] VITALS: BP 101/59
== END 2017-03-13 06:24 | disposition home or self-care (01) ==
LOC: DL.ED 04:21
DX: N39.0 Urinary tract infection, site not specified (principal); I25.2 Old myocardial infarction; Z95.5 Presence of coronary angioplasty implant and graft; Z86.718 Personal history of other venous thrombosis and embolism; Z87.891 Personal history of nicotine dependence; Z79.899 Other long term (current) drug therapy; Z79.02 Long term (current) use of antithrombotics/antiplatelets
CPT/HCPCS: 36415; 80053; 85025; 96365; 99284; J7030

== ENCOUNTER 2017-06-14 10:21 | Emergency (ER) | payer MEDICARE, MEDICAID ==
[2017-06-14] MEDS ORDERED: Sodium Chloride 0.9% 1,000 ML IV SCH (10:45)
[2017-06-14 11:35] LABS: CHLORIDE,CL 99 mmol/L (101-111); SODIUM,NA 137 mmol/L (135-145)
[2017-06-14] MEDS ORDERED: Ciprofloxacin in D5W 400 MG in Premix Bag 1 BAG IV ONE ×2 (12:05)
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
[2017-06-14] MEDS ORDERED: Iopamidol 612 MG/ML 100 ML Bottle IVPUSH ONE (12:29)
[2017-06-14 12:30] VITALS: BP 116/63
== END 2017-06-14 14:10 | disposition home or self-care (01) ==
LOC: DL.ED 10:21
DX: I95.9 Hypotension, unspecified (principal); T83.511A Infection and inflammatory reaction due to indwelling urethral catheter, initial encounter; N39.0 Urinary tract infection, site not specified; K59.01 Slow transit constipation; Z95.5 Presence of coronary angioplasty implant and graft; Z86.718 Personal history of other venous thrombosis and embolism; Z79.02 Long term (current) use of antithrombotics/antiplatelets; Z79.899 Other long term (current) drug therapy
CPT/HCPCS: 36415; 74000; 74177; 80053; 81001; 83605; 85025; 87086; 87088; 87186; 96361; 96365; 99284; 99285; J0744; J7030; Q9967

== ENCOUNTER 2017-06-21 01:20 | Emergency (ER) | payer MEDICARE, MEDICAID ==
[~2017-06-21 01:20] MED LIST: Sodium Chloride 0.9% 1,000 ML IV ONE
--- NOTE | 2017-06-21 01:25 | EDM.PDOC ---
ED HPI GENERAL MEDICAL PROBLEM - General Chief Complaint: Cardiovascular Problem Stated Complaint: AMBULANCE Time Seen by Provider: 06/21/17 01:21 [employer]IFT WRAP ASSOCIATE Source of Information: Reports: Patient, EMS Notes Reviewed, Retirement Records History Limitations: Reports: No Limitations - History of Present Illness INITIAL COMMENTS - FREE TEXT/NARRATIVE: 67 yo white male sent from [place] due to elevated BP and Headache. Pt. states he had headache X 20mins w/ elevated BP but now all symptoms resolved. Onset: Today Onset Date: 06/21/17 Onset Time: 00:30 Duration: Minutes: Location: Reports: Generalized Severity: Moderate Improves with: Reports: None Worsens with: Reports: None Associated Symptoms: Reports: Headaches Perineal Area Pain Score (Numeric/FACES): 10 - Related Data Allergies Allergy/AdvReac Type Severity Reaction Status Date / Time No Known Allergies Allergy Verified 06/21/17 01:01 [employer] WR[employer] ASSOCIATE Home Meds: Home Meds Baclofen 5 mg PO TID 08/31/14 [History] Dantrolene [Dantrium] 25 tab PO BID 08/31/14 [History] Acetaminophen [Tylenol] 650 mg PO DAILY 04/12/16 [History] Bisacodyl 10 mg RECTAL ASDIRECTED PRN 04/12/16 [History] Clopidogrel [Plavix] 75 mg PO DAILY 04/12/16 [History] Simvastatin [Zocor] 40 mg PO DAILY 04/12/16 [History] Cyanocobalamin (Vitamin B12) [Vitamin B12] 1,000 mcg IM ASDIRECTED 05/20/16 [ History] Acetaminophen [Tylenol] 650 mg PO Q4HR PRN 02/01/17 [History] Ascorbic Acid [Vitamin C] 500 mg PO BID 03/04/17 [History] Sennosides/Docusate Sodium [Sennosides-Docusate Sodium] 2 tab PO BID 03/04/17 [ History] Ciprofloxacin HCl [Cipro] 500 mg PO BID 06/21/17 [History] Past Medical History HEENT History: Reports: None Cardiovascular History: Reports: Blood Clots/VTE/DVT, [place], Stents Respiratory History: Reports: PE Gastrointestinal History: Reports: None Genitourinary History: Reports: Neurogenic Bladder, Retention, Urinary, UTI, Recurrent Musculoskeletal History: Reports: Other (See Below) Other Musculoskeletal History: quadrapilegic Neurological History: Reports: Concussion, Other (See Below) Other Neuro History: quadriplegic Psychiatric History: Reports: None Endocrine/Metabolic History: Reports: None Hematologic History: Reports: None Immunologic History: Reports: None Oncologic (Cancer) History: Reports: None Dermatologic History: Reports: None - Infectious Disease History Infectious Disease History: Reports: Chicken Pox, Mumps - Past Surgical History Cardiovascular Surgical History: Reports: Coronary Artery Stent Social & Family History - Family History Family Medical History: Noncontributory - Tobacco Use Smoking Status *Q: Never Smoker Years of Tobacco use: 35 Packs/Tins Daily: 0.2 Used Tobacco, but Quit: Yes Month Tobacco Last Used: unsure Second Hand Smoke Exposure: No - Caffeine Use Caffeine Use: Reports: Soda - Alcohol Use Days Per Week of Alcohol Use: 1 Number of Drinks Per Day: 1 Total Drinks Per Week: 1 - Recreational Drug Use Recreational Drug Use: No ED ROS GENERAL - Review of Systems Review Of Systems: See Below Constitutional: Reports: No Symptoms HEENT: Reports: No Symptoms Respiratory: Reports: No Symptoms Cardiovascular: Reports: Blood Pressure Problem (Pt. BP in ED is systolic 80's) Endocrine: Reports: No Symptoms GI/Abdominal: Reports: No Symptoms Musculoskeletal: Reports: No Symptoms Skin: Reports: No Symptoms Neurological: Reports: Numbness, Paresthesia, Difficulty Walking, Weakness Psychiatric: Reports: No Symptoms Hematologic/Lymphatic: Reports: No Symptoms Immunologic: Reports: No Symptoms ED EXAM, GENERAL - Physical Exam Exam: See Below Exam Limited By: No Limitations General Appearance: Alert, WD/WN, No Apparent Distress Eye Exam: Bilateral Eye: EOMI, PERRL Ears: Normal External Exam Nose: Normal Inspection Throat/Mouth: Normal Inspection, Normal Lips Head: Atraumatic, Normocephalic Neck: Normal Inspection Respiratory/Chest: No Respiratory Distress, Lungs Clear Cardiovascular: Normal Peripheral Pulses, Regular Rate, Rhythm GI/Abdominal: Normal Bowel Sounds Extremities: Normal Inspection, Normal Range of Motion Neurological: Alert, Oriented, CN II-XII Intact, Abnormal Gait, Abnormal Reflexes, Sensory/Motor Deficit Psychiatric: Normal Affect Skin Exam: Warm, Dry, Intact Lymphatic: No Adenopathy Course - Vital Signs Last Recorded V/S: Last Vital Signs Temp 36.0 C 06/21/17 01:18 [employer]IATE Pulse 77 06/21/17 01:18 [employer] GIFT WR[employer]IATE Resp 18 06/21/17 01:18 [employer]IATE BP 109/69 11/05/17 01:18 [employer] GIFT WR[employer]IATE Pulse Ox 96 06/21/17 01:18 [employer] GIFT WR[employer] ASSOCIATE - Orders/Labs/Meds Orders: Active Orders 24 hr Category Date Time Status EKG Documentation Completion [RC] STAT Care 06/21/17 01:23 Active CULTURE URINE [RM] Stat Lab 06/21/17 02:13 Uncollected UA W/MICROSCOPIC [URIN] Stat Lab 06/21/17 01:33 Results Labs: Laboratory Tests 06/21/17 06/21/17 06/21/17 Range/Units 01:33 [employer] GIFT WR[employer] ASS[employer]IATE 01:40 STORE GIFT WRAP ASSOCIATE 01:40 [employer] GIFT WR[employer] ASSOCIATE WBC 9.9 (5.0-10.0) 10^3/uL RBC 4.74 (4.6-6.2) 10^6/uL Hgb 14.8 (14.0-18.0) g/dL Hct 46.2 (40.0-54.0) % MCV 97.5 (80-100) fL MCH 31.2 (27.0-34.0) pg MCHC 32.0 L (33.0-35.0) g/dL Plt Count 200 (150-450) 10^3/uL Neut % (Auto) 59.6 (42.2-75.2) % Lymph % (Auto) 27.1 (20.5-50.1) % [place] % (Auto) 8.9 H (2-8) % Eos % (Auto) 4.1 H (1.0-3.0) % Baso % (Auto) 0.3 (0.0-1.0) % Add Manual Diff Yes Neutrophils % (Manual) 50 (42-75) % Band Neutrophils % 11 % Lymphocytes % (Manual) 33 (20-50) % Atypical Lymphs % 0 % Monocytes % (Manual) 4 (2-8) % Eosinophils % (Manual) 2 (1-3) % Basophils % (Manual) 0 Sodium 135 (135-145) mmol/L Potassium 3.8 (3.6-5.0) mmol/L Chloride 99 L (101-111) mmol/L Carbon Dioxide 26.0 (21.0-31.0) mmol/L Anion Gap 13.8 BUN 9 (7-18) mg/dL Creatinine 0.6 (0.6-1.3) mg/dL Est Cr Clr Drug Dosing 110.76 mL/min Estimated GFR (MDRD) > 60 BUN/Creatinine Ratio 15.00 Glucose 130 H (74-105) mg/dL Lactic Acid (0.5-2.2) mmol/L Calcium 8.9 (8.4-10.2) mg/dl Total Bilirubin 0.4 (0.2-1.0) mg/dL AST 24 (10-42) IU/L ALT 16 (10-60) IU/L Alkaline Phosphatase 53 (42-121) IU/L Troponin I < 0.02 (0.00-0.02) ng/ml Total Protein 6.5 L (6.7-8.2) g/dl Albumin 3.8 (3.2-5.5) g/dl Globulin 2.7 Albumin/Globulin Ratio 1.41 Urine Color Yellow (YELLOW) Urine Appearance Slightly cloudy (CLEAR) Urine pH 6.5 (5.0-9.0) Ur Specific [place] <= 1.005 (1.005-1.030) Urine Protein Negative (NEGATIVE) Urine Glucose (UA) Negative (NEGATIVE) Urine Ketones Negative (NEGATIVE) Urine Occult Blood Moderate H (NEGATIVE) Urine Nitrite Negative (NEGATIVE) Urine Bilirubin Negative (NEGATIVE) Urine Urobilinogen 0.2 (0.2-1.0) mg/dL Ur Leukocyte Esterase Trace H (NEGATIVE) 06/21/17 Range/Units 01:40 ST[employer] GIFT WR[employer] ASSOCIATE WBC (5.0-10.0) 10^3/uL RBC (4.6-6.2) 10^6/uL Hgb (14.0-18.0) g/dL Hct (40.0-54.0) % MCV (80-100) fL MCH (27.0-34.0) pg MCHC (33.0-35.0) g/dL Plt Count (150-450) 10^3/uL Neut % (Auto) (42.2-75.2) % Lymph % (Auto) (20.5-50.1) % [place] % (Auto) (2-8) % Eos % (Auto) (1.0-3.0) % Baso % (Auto) (0.0-1.0) % Add Manual Diff Neutrophils % (Manual) (42-75) % Band Neutrophils % % Lymphocytes % (Manual) (20-50) % Atypical Lymphs % % Monocytes % (Manual) (2-8) % Eosinophils % (Manual) (1-3) % Basophils % (Manual) Sodium (135-145) mmol/L Potassium (3.6-5.0) mmol/L Chloride (101-111) mmol/L Carbon Dioxide (21.0-31.0) mmol/L Anion Gap BUN (7-18) mg/dL Creatinine (0.6-1.3) mg/dL Est Cr Clr Drug Dosing mL/min Estimated GFR (MDRD) BUN/Creatinine Ratio Glucose (74-105) mg/dL Lactic Acid 1.4 (0.5-2.2) mmol/L Calcium (8.4-10.2) mg/dl Total Bilirubin (0.2-1.0) mg/dL AST (10-42) IU/L ALT (10-60) IU/L Alkaline Phosphatase (42-121) IU/L Troponin I (0.00-0.02) ng/ml Total Protein (6.7-8.2) g/dl Albumin (3.2-5.5) g/dl Globulin Albumin/Globulin Ratio Urine Color (YELLOW) Urine Appearance (CLEAR) Urine pH (5.0-9.0) Ur Specific [place] (1.005-1.030) Urine Protein (NEGATIVE) Urine Glucose (UA) (NEGATIVE) Urine Ketones (NEGATIVE) Urine Occult Blood (NEGATIVE) Urine Nitrite (NEGATIVE) Urine Bilirubin (NEGATIVE) Urine Urobilinogen (0.2-1.0) mg/dL Ur Leukocyte Esterase (NEGATIVE) Meds: Medications Discontinued Medications Generic Name Dose Route Start Last Admin Trade Name Freq PRN Reason Stop Dose Admin Sodium Chloride 1,000 mls @ 999 mls/hr 06/21/17 01:19 [employer]ORE GIFT WRAP ASSOCIATE 06/21/17 01:08 STORE GIFT WRAP ASSOCIATE Normal Saline IV 06/21/17 02:19 999 mls/hr .BOLUS ONE Administration Departure - Departure Time of Disposition: 02:14 Disposition: DC/Tfer to SNF 03 Reason for Transfer *Q: Other (return to [facility]) Condition: Good Clinical Impression: Hypotension Qualifiers: Hypotension type: unspecified hypotension type Qualified Code(s): I95.9 - Hypotension, unspecified UTI (urinary tract infection) due to urinary indwelling Pham catheter Qualifiers: Indwelling urinary catheter type: indwelling urethral catheter Encounter type: subsequent encounter Qualified Code(s): T83.511D - Infection and inflammatory reaction due to indwelling urethral catheter, subsequent encounter; N39.0 - Urinary tract infection, site not specified; N39.0 - Urinary tract infection, site not specified Forms: ED Department Discharge Additional Instructions: Increase intake of Water and Cranberry Juice Take the CIPRO 500mg BID and complete F/U w/ PCP - My Orders Last 24 Hours: My Active Orders 06/21/17 01:23 EKG Documentation Completion [RC] STAT 06/21/17 01:33 UA W/MICROSCOPIC [URIN] Stat 06/21/17 02:13 CULTURE URINE [RM] Stat - Assessment/Plan Last 24 Hours: My Active Orders 06/21/17 01:23 EKG Documentation Completion [RC] STAT 06/21/17 01:33 UA W/MICROSCOPIC [URIN] Stat 06/21/17 02:13 CULTURE URINE [RM] Stat
[2017-06-21 02:09] LABS: CHLORIDE,CL 99 mmol/L (101-111); SODIUM,NA 135 mmol/L (135-145)
[2017-06-21 02:39] VITALS: BP 139/72
--- NOTE | 2017-06-21 12:37 | EKG ---
06/21/2017 - PHILIP SANTAMARIA - Twelve-lead EKG shows normal sinus rhythm with no significant ST elevation or ST depression noted on this 12-lead EKG. Nonspecific T-wave changes noted on lead V2, V3. [facility] /[id number]
== END 2017-06-21 03:21 ==
LOC: DL.ED 01:20
DX: I95.9 Hypotension, unspecified (principal); T83.511D Infection and inflammatory reaction due to indwelling urethral catheter, subsequent encounter; N39.0 Urinary tract infection, site not specified; Z87.891 Personal history of nicotine dependence; Z79.02 Long term (current) use of antithrombotics/antiplatelets; Z79.899 Other long term (current) drug therapy
CPT/HCPCS: 36415; 80053; 81001; 83605; 84484; 85025; 87086; 93005; 93010; 96360; 99285; J7030; 87088; 87186

== ENCOUNTER 2017-12-16 22:32 | Emergency (ER) | payer MEDICARE, MEDICAID ==
[2017-12-16] MEDS ORDERED: Sodium Chloride 0.9% 1,000 ML IV SCH (22:45)
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
[2017-12-16 23:23] LABS: ANION GAP 11.1; CHLORIDE,CL 100 mmol/L (101-111); SODIUM,NA 136 mmol/L (135-145)
[2017-12-17] MEDS ORDERED: Meropenem 1 GM SDV IVPUSH ONE ×2 (00:01→05:30)
[2017-12-17] MEDS ORDERED: Acetaminophen/HYDROcodone 325-5 MG Tab PO ONE (00:21)
[2017-12-17] MEDS ORDERED: Acetaminophen 325 MG Tab PO ONE (01:40)
[2017-12-17] MEDS ORDERED: Morphine 2 MG/ML Syringe IVPUSH ONE (02:53)
[2017-12-17] MEDS ORDERED: Sodium Chloride 0.9% 1,000 ML IV SCH (06:15)
[2017-12-17 06:22] VITALS: BP 121/53
== END 2017-12-17 06:37 ==
LOC: DL.ED 22:32
DX: T83.511A Infection and inflammatory reaction due to indwelling urethral catheter, initial encounter (principal); Z87.891 Personal history of nicotine dependence; Z79.899 Other long term (current) drug therapy
CPT/HCPCS: 36410; 36415; 71045; 80053; 81001; 83605; 85025; 87040; 87086; 87088; 87186; 96361; 96374; 96375; 99284; A9270; J2185; J2270; J7030